=== PATIENT | female | born 1935 | race Caucasian/White ===

== ENCOUNTER 2022-02-17 12:37 | Emergency (ER) | payer OTHER, MEDICARE ==
[2022-02-17 13:42] LABS: ESTIMATED GFR 50 mL/min (>60)
== END 2022-02-17 15:05 | disposition home or self-care (01) ==
LOC: JP.ED 12:37
DX: R42 Dizziness and giddiness (principal); M62.838 Other muscle spasm; Z79.899 Other long term (current) drug therapy; W06.XXXA Fall from bed, initial encounter
CPT/HCPCS: 36415; 80053; 81001; 85025; 99282; 99284